=== PATIENT | male | born 1945 | race Caucasian/White ===

== ENCOUNTER 2024-01-17 04:52 | Emergency (ER) | payer OTHER, SELFPAY ==
[2024-01-17 04:56] VITALS: BP 142/99
--- NOTE | 2024-01-17 05:16 | ED.GENMED ---
History of Present Illness
General
Chief Complaint: Skin Problem
Source: patient
Time Seen by Provider: 01/17/24 05:07
Nursing documentation reviewed up to this point in time: agreed with
History of Present Illness
History of Present Illness:
Pleasant 78-year-old male who presents with rash on his upper extremities and abdomen. He states that this began about 5 days ago. Patient reports pain in the right hand especially where he has been scratching. He does report swelling and
redness. Denies fever or chills. He has been using anti-itch spray which has been providing some relief. Patient states that the symptoms began shortly after trimming some hedges. He thinks he might of gotten into poison cyrus. He is a diabetic
but states that his blood sugars are meticulously controlled. Denies chest pain or shortness of breath. Reports no difficulty swallowing.
Past History
Past History
ED Past Medical History: HTN and Hypercholesterolemia
Social History
Tobacco: Non-smoker
Alcohol: None
Drug: None
Personal:
Living: with family
Employment: Employed
Review of Systems
Review of Systems
Allergies reviewed?: Yes
All Other Systems: ROS reviewed and negative except as documented in HPI and ROS
Constitutional: Reports no symptoms
EENT: Reports no symptoms
Respiratory: Reports no symptoms
Cardiac: Reports no symptoms
ABD/GI: Reports no symptoms
: Reports no symptoms
Musculoskeletal: Reports no symptoms
Skin: Reports itching and rash
Neurological: Reports no symptoms
Endocrine: Reports no symptoms
Hematologic/Lymphatic: Reports no symptoms
Psychiatric: Reports anxiety
Phy Exam
General Physical Exam
General Presentation: well appearing and no apparent distress
General Skin: warm and dry
General Habitus: normal
General Mental: alert
General Hydration: appears well hydrated
ENT Exam
ENT Exam: EOMI, pharynx normal, neck supple and normocephalic
Eye Exam
Eye Exam: PERRL, cornea clear and conjunctiva normal
Cardiovascular Exam
Cardiovascular Exam: regular rate/rhythm, no edema, no murmur and normal peripheral pulses
Pulmonary Exam
Pulmonary Exam: lungs clear, no respiratory distress, no rales, no crackles, no rhonchi, no stridor, no wheezing and no cough
Gastrointestinal Exam
Gastrointestinal Exam: normal bowel sounds, non tender, soft, no organomegaly, no pulsatile mass and non distended
Neurological Exam
Neurological Exam: alert, oriented x3, no motor deficits and speech normal
Musculoskeletal Exam
Musculoskeletal Exam: full ROM and no edema
Skin Exam
Skin Exam: erythema, redness (Right hand), warmth and other (RHUS dermatitis in the abdomen and arms consistent with poison cyrus. There are linear demarcations. There is also 1 bullae on the right hand.)
Psychiatric Exam
Psychiatric Exam: normal mood/affect
Course
Orders/Labs/Results
Orders:
Orders
01/17/24 05:14
Dexamethasone Pf [Decadron] 10 mg PO NOW STA
01/17/24 05:15
Clindamycin HCl [Cleocin] 450 mg PO NOW STA
01/17/24 05:08
01/17/24 05:08
Vital Signs
Initial and Last Documented VS:
Initial Vital Signs
Temp Pulse Resp BP Pulse Ox
98.6 F 91 18 142/99 92
01/17/24 04:56 01/17/24 04:56 01/17/24 04:56 01/17/24 04:56 01/17/24 04:56
Last Documented Vital Signs
Temp Pulse Resp BP Pulse Ox
98.6 F 91 18 142/99 92
01/17/24 04:56 01/17/24 04:56 01/17/24 04:56 01/17/24 04:56 01/17/24 04:56
*Critical Care Note
Total Time (30-74mins, 75-104mins- exclusive of procedures): Not Applicable
ED Attending Note
-
Portions of this chart may have been created with voice recognition software.� Occasional wrong word or��sound alike� substitutions may have occurred due to the inherent limitations of voice recognition software.
Discharge Plan
Departure
Patient Disposition: Home (Routine Discharge)
Date of Disposition: 01/17/24
Time of Disposition: 05:19
Patient with high blood pressure during this ER visit?: Yes
Discharge Problem:
Poison cyrus, Cellulitis
Instructions: Poison cyrus, Wound Care (DC), Cellulitis (Skin Infection), Adult (DC), BLOOD PRESSURE
Prescriptions:
New
clindamycin HCl [Cleocin HCl] 150 mg capsule
450 mg PO TID 7 Days Qty: 63 0RF
No Action
atorvastatin 10 MG tablet
10 mg PO QPM
losartan-hydrochlorothiazide 1 TAB tablet
1 tab PO DAILY
tamsulosin 0.4 MG capsule
0.8 mg PO DAILY
amlodipine 10 MG tablet
10 mg PO HS
metformin 1,000 MG tablet
1,000 mg PO BID@0800,1700
mesalamine [Apriso] 0.375 GM capsule,extended release 24hr
1.5 g PO DAILY
trazodone 150 MG tablet
150 mg PO HS
phenazopyridine 200 MG tablet
200 mg PO TIDPRN PRN (Reason: burning with urination) 5 Days Qty: 15 0RF
finasteride 5 MG tablet
5 mg PO DAILY
levofloxacin 500 MG tablet
500 mg PO DAILY Qty: 11 0RF
Activity Restrictions/Additional Instructions:
[Your prescriptions were sent electronically to the pharmacy that you specified.]
It was a pleasure meeting you and taking part in your care. We hope for your continued healing and wellness.
Please read discharge instructions in their entirety. However, they are for general education and may not describe your exact diagnosis at discharge. Information on your ER visit and medical conditions were discussed with you along with appropriate
follow up information...
If indicated, please take your medications as instructed and indicated on discharge paperwork.
Please schedule a follow up appointment as directed. Call to schedule an appointment
Please return to the emergency department with ANY change in, persisting, or worsening of symptoms. If any of your symptoms do not improve, or persist, or become more severe within 6-12 hours, please return to the emergency department for further
care.
Please return to the emergency department if you develop a headache, neck pain/stiffness, fever greater than 100.4F, chest pain, shortness of breath, persistent nausea, vomiting, slurred speech, difficulty walking, numbness/tingling, weakness, signs
of infection or any other symptoms that are worrisome to you.
If you have any questions or concerns please do not hesitate to call the Hospital at or E-mail me directly at [email or web address]
Interventions
Interventions:
*Risk Screen - Suicide Last Done: 01/17/24 04:56
*General Assessment Last Done: 01/17/24 04:56
*Neglect/Abuse Screening Last Done: 01/17/24 04:56
ED- Fall Risk Assessment Last Done: 01/17/24 04:56
*ED COVID-19 Vaccine History Last Done: 01/17/24 04:56
Discharge Date and Time
Print Language: CAMBODIAN
[2024-01-17] MEDS: CLEOCIN 450 MG PO (05:26)
[2024-01-17] MEDS: DECADRON 10 MG PO (05:27)
== END 2024-01-17 05:46 | disposition home or self-care (01) ==
LOC: EMR 04:52
PROVIDERS: EMERGENCY PHYSICIAN Student in an Organized Health Care Education/Training Program; FAMILY PHYSICIAN Nurse Practitioner Family
DX: L23.7 Allergic contact dermatitis due to plants, except food (principal); L03.113 Cellulitis of right upper limb; M79.641 Pain in right hand; I10 Essential (primary) hypertension; E78.00 Pure hypercholesterolemia, unspecified; E11.9 Type 2 diabetes mellitus without complications; K52.9 Noninfective gastroenteritis and colitis, unspecified; F32.A Depression, unspecified; K57.92 Diverticulitis of intestine, part unspecified, without perforation or abscess without bleeding; N40.0 Benign prostatic hyperplasia without lower urinary tract symptoms; M19.90 Unspecified osteoarthritis, unspecified site; Z85.828 Personal history of other malignant neoplasm of skin; Z79.84 Long term (current) use of oral hypoglycemic drugs; Z88.0 Allergy status to penicillin; Z91.048 Other nonmedicinal substance allergy status
CPT/HCPCS: 99283